=== PATIENT | male | born 1955 | race Caucasian/White ===

== ENCOUNTER 2016-06-25 13:40 | Emergency (ER) | payer OTHER ==
[2016-06-25 13:47] VITALS: O2SAT 95
--- NOTE | 2016-06-25 13:54 | CPEKG ---
Heart Rate: 70 RR Interval: 857 P-R Interval: 188 QRSD Interval: 90 QT Interval: 420 QTC Interval: 454 P [place]: 37 QRS [place]: -44 T Wave [place]: 34 EKG Severity - OTHERWISE NORMAL ECG - EKG Impression: SINUS RHYTHM EKG Impression: LEFT AXIS DEVIATION Electronically Signed By: Kenney Bull 25-Jun-2016 14:26:12
--- NOTE | 2016-06-25 13:57 | EDPHY ---
H & P Stated Complaint: episode of cp yesterday lasted 20sec/diaphoretic/now with fatigue only Time Seen by Provider: 06/25/16 13:52 HPI/ROS: CHIEF COMPLAINT: Resolved chest pain HISTORY OF PRESENT ILLNESS: The patient presents to the ED for evaluation of an episode of chest pain that occurred yesterday. Patient reports that approximately 2:00 p.m. while sitting at his desk he had a 30 second episode of sharp sub xiphoid pain. He had a brief episode of diaphoresis. Since that time he has had no recurrent symptoms. He reports very subtle symptoms of ongoing fatigue. The patient has no risk factors for cardiac disease aside from mild untreated hyperlipidemia. The patient is uncertain of his past family medical history as he was adopted. The patient is currently asymptomatic. The patient reports he does run frequently on a treadmill without any complaints of chest pain or shortness of breath. The patient denies any pleuritic chest pain, asymmetric calf pain or swelling or other acute complaints. The patient takes no regular medications. The patient denies recent surgical history. REVIEW OF SYSTEMS: A comprehensive 10 point review of systems is otherwise negative aside from elements mentioned in the history of present illness. Source: Patient Exam Limitations: No limitations - Personal History Current Tetanus/Diphtheria Vaccine: Unsure - Medical/Surgical History Hx Asthma: No Hx Chronic Respiratory Disease: No Hx Diabetes: No Hx Cardiac Disease: No Hx Renal Disease: No Hx Cirrhosis: No Hx Alcoholism: No Hx HIV/AIDS: No Hx Splenectomy or Spleen Trauma: No Other PMH: denies - Social History Smoking Status: Never smoked - Physical Exam Exam: General Appearance: Alert, no distress Eyes: Pupils equal and round no pallor or injection ENT, Mouth: Mucous membranes moist Respiratory: There are no retractions, lungs are clear to auscultation Cardiovascular: Regular rate and rhythm Gastrointestinal: Abdomen is soft and nontender, no masses, bowel sounds normal Neurological: A&O, normal motor function, normal sensory exam, normal cranial nerves Skin: Warm and dry, no rashes Musculoskeletal: Neck is supple nontender Extremities: symmetrical, full range of motion Constitutional: Initial Vital Signs Temperature (C) 36.4 C 06/25/16 13:43 Heart Rate 71 06/25/16 13:43 Respiratory Rate 20 06/25/16 13:43 Blood Pressure 153/96 H 06/25/16 13:43 O2 Sat (%) 95 06/25/16 13:43 O2 Delivery Mode Room Air Allergies/Adverse Reactions: No Known Allergies Allergy (Verified 06/25/16 13:43) Home Medications: Medication Instructions Recorded NK [No Known Home Meds] 06/25/16 Medical Decision Making - Diagnostics EKG Interpretation: EKG: Complete interpretation has been separately recorded in the [facility] archive. Summary impression: Sinus rhythm, rate 70, slight left axis deviation ED Course/Re-evaluation: The patient presents to the ED after a 20-30 second episode of atypical chest pain which occurred yesterday. The patient's EKG and cardiac enzymes are normal. The patient reports that he exercises frequently without symptoms of chest pain or shortness of breath. My clinical suspicion for acute coronary syndrome is low. I have told the patient that I cannot fully exclude the possibility that coronary artery disease has contributed to his symptoms. The patient would be comfortable following up with Dr. Rickie Mishra from Cardiology at the [facility] for a treadmill stress test next week. Patient does understand that he should return to the ED immediately this weekend for any recurrent chest pain or difficulty breathing. 2:40 p.m. I informed the patient that his workup in the emergency department is unremarkable. The patient is comfortable following up with Cardiology on Tuesday. He is given customary return precautions and follow-up instructions. Differential Diagnosis: Differential diagnosis considered includes esophageal spasm, acute coronary syndrome, pericarditis, myocardial infarction - Data Points Laboratory Results: Laboratory Results 06/25/16 13:50 06/25/16 13:50 06/25/16 06/25/16 13:50 13:50 WBC 5.66 10^3/uL 10^3/uL (3.80-9.50) RBC 5.07 10^6/uL 10^6/uL (4.40-6.38) Hgb 14.8 g/dL g/dL (13.7-17.5) Hct 44.0 % % (40.0-51.0) MCV 86.8 fL fL (81.5-99.8) MCH 29.2 pg pg (27.9-34.1) MCHC 33.6 g/dL g/dL (32.4-36.7) RDW 12.1 % % (11.5-15.2) Plt Count 176 10^3/uL 10^3/uL (150-400) MPV 10.6 fL fL (8.7-11.7) Neut % (Auto) 53.2 % % (39.3-74.2) Lymph % (Auto) 35.9 % % (15.0-45.0) Chambers % (Auto) 8.1 % % (4.5-13.0) Eos % (Auto) 1.4 % % (0.6-7.6) Baso % (Auto) 1.2 % % (0.3-1.7) Nucleat RBC Rel Count 0.0 % % (0.0-0.2) Absolute Neuts (auto) 3.01 10^3/uL 10^3/uL (1.70-6.50) Absolute Lymphs (auto) 2.03 10^3/uL 10^3/uL (1.00-3.00) Absolute Monos (auto) 0.46 10^3/uL 10^3/uL (0.30-0.80) Absolute Eos (auto) 0.08 10^3/uL 10^3/uL (0.03-0.40) Absolute Basos (auto) 0.07 10^3/uL 10^3/uL (0.02-0.10) Absolute Nucleated RBC 0.00 10^3/uL 10^3/uL (0-0.01) Immature Gran % 0.2 % % (0.0-1.1) Immature Gran # 0.01 10^3/uL 10^3/uL (0.00-0.10) Sodium 140 mEq/L mEq/L (134-144) Potassium 3.9 mEq/L mEq/L (3.5-5.2) Chloride 103 mEq/L mEq/L (97-110) Carbon Dioxide 25 mEq/l mEq/l (22-31) Anion Gap 12 mEq/L mEq/L (8-16) BUN 17 mg/dL mg/dL (7-23) Creatinine 1.0 mg/dL mg/dL (0.7-1.3) Estimated GFR > 60 Glucose 89 mg/dL mg/dL (70-100) Calcium 9.6 mg/dL mg/dL (8.5-10.4) Troponin I < 0.012 ng/mL ng/mL (0-0.034) Departure - Departure Disposition: Home, Routine, Self-Care Clinical Impression: Chest pain Condition: Good Instructions: Chest Pain (ED) Additional Instructions: 1. Based upon the testing done in the Emergency Department today we see no evidence of a heart attack. 2. We are unable to fully exclude coronary artery disease based upon the testing available in the Emergency Department. 3. For this reason, we would like you to be seen by cardiology for consideration of additional testing within the next 3 days. 4. Please contact the fish fryer you have been referred to schedule this appointment as soon as possible. Their offices are typically open from 8:30am- 5pm M-F. 5. Please return to the Emergency Department immediately for any recurrent chest pain, difficulty breathing or other concerns. Referrals: Denice Edward MD [Primary Care Provider] - As per Instructions Dallas Mishra MD [Medical Doctor] - As per Instructions
[2016-06-25 14:02] VITALS: PULSE 68; RESP 16
[2016-06-25 14:03] LABS: % IMMATURE GRANULYOCYTES 0.2 % (0.0-1.1); ABSOLUTE IMMATURE GRANULOCYTES 0.01 10^3/uL (0.00-0.10); ADD DIFF? NO; ADD MORPH? NO; ADD SCAN? NO; ATYPICAL LYMPHOCYTE FLAG 0 (0-99); FRAGMENT RBC FLAG 0 (0-99); HEMOGLOBIN 14.8 g/dL (13.7-17.5); LEFT SHIFT FLG 0 (0-99); LIPEMIA HEMOLYSIS FLAG 80 (0-99); MEAN CELL HEMOGLOBIN 29.2 pg (27.9-34.1); MEAN CELL HEMOGLOBIN CONCENTR. 33.6 g/dL (32.4-36.7); MEAN CELL VOLUME 86.8 fL (81.5-99.8); MEAN PLATELET VOLUME 10.6 fL (8.7-11.7); PLATELET CLUMPS FLAG 0 (0-99); PLATELET COUNT 176 10^3/uL (150-400); RED BLOOD CELL COUNT 5.07 10^6/uL (4.40-6.38); RED CELL DISTRIBUTION WIDTH 12.1 % (11.5-15.2)
[2016-06-25 14:19] LABS: ANION GAP 12 mEq/L (8-16); CALCIUM 9.6 mg/dL (8.5-10.4); CARBON DIOXIDE 25 mEq/l (22-31); CHLORIDE 103 mEq/L (97-110); GLOMERULAR FILTRATION RATE > 60; GLUCOSE 89 mg/dL (70-100); POTASSIUM 3.9 mEq/L (3.5-5.2); SODIUM 140 mEq/L (134-144)
[2016-06-25 14:29] LABS: TROPONIN I < 0.012 ng/mL (0-0.034)
[2016-06-25 14:51] VITALS: BP 155/91; TEMP 98.1
== END 2016-06-25 14:50 | disposition home or self-care (01) ==
DX: R07.9 Chest pain, unspecified (principal)

== ENCOUNTER 2018-06-22 09:22 | Emergency (ER) | payer OTHER ==
--- NOTE | 2018-06-22 09:35 | EDPHY ---
General Time Seen by Provider: 06/22/18 09:34 Narrative: CLINICAL IMPRESSION: Right-sided back pain, shortness of breath, lightheaded, weakness ASSESSMENT/PLAN: Patient is a 62-year-old male with a history of hyperlipidemia who presents to the emergency department with atraumatic right thoracic back pain, shortness of breath, lightheadedness and weakness. Patient is afebrile, he is not toxic appearing and in no acute distress. His neurological exam was grossly normal, no focal deficit; NIH 0, negative test of skew, there is no truncal or gait ataxia. CBC revealed mild anemia and thrombocytopenia, patient reports that he has had low blood counts in the past, he will follow up with his primary care provider regarding this. Patient with colonoscopy this year, has had no melena or hematochezia to suggest GI bleed. BMP, lipase and liver function panel all grossly unremarkable. An ECG was immediately obtained and revealed normal sinus rhythm at a rate of 67 without evidence of acute ischemia, this was reviewed by myself and Dr. Siegel. His symptoms have been ongoing longer than 6 hr, we did not feel that we needed to repeat troponin or ECG. ECG also unchanged from previous in 2017. Troponin was 0. A dimer was obtained and was within normal limits. Chest x-ray with no acute findings. History and physical examination is most consistent with right-sided thoracic back pain likely musculoskeletal in nature as it was ultimately reproduced in the emergency department. I suspect his episode of diaphoresis and feeling lightheaded with secondary to the discomfort that he was having and vasovagal in nature. He is also under quite a bit of stress, query mild underlying anxiety. There were no findings today to suggest intracranial hemorrhage, TIA, stroke, ACS, PE, pneumothorax, pleural inflammation, infectious process, dissection, cauda equina, epidural compression syndrome renal colic or pyelonephritis. A Lidoderm patch was placed, patient had mild relief in his discomfort and complete resolution in his feeling of lightheadedness. He was noted to have elevated blood pressure on arrival, this normalized without intervention, there was no evidence of hypertensive urgency or emergency. He is well established with his primary care provider and will call to schedule follow-up appointment to be seen in the next 1-2 days. He is also well established with Dr. Mishra at [facility], he will call to schedule appointment for follow-up with him as well. Conservative return precautions were discussed-patient will return for significantly worsening or uncontrolled pain, development of chest pain, increased shortness of breath, fever, numbness or tingling of extremities, focal weakness or for any other concerning symptom. Patient verbalizes understanding and he is in agreement with this plan. DIFFERENTIAL DX: Back pain including but not limited to and in no particular order muscular pain , fracture, PE, ACS, infectious process, cauda equina, renal colic, pyelonephritis. ED COURSE: 954: ECG reviewed by myself and Dr. Siegel. Sinus rhythm with a rate of 67, no evidence of acute ischemia. ECG reviewed from visit in 2017, unchanged. 1008: Case discussed with Dr. Siegel. Patient with mild anemia with platelets of 135; mildly low in comparison to laboratory studies performed 1 year prior. Troponin is 0. 1022: Dimer negative. Dr. Siegel to evaluate patient. Dr. Siegel was able to reproduce right-sided thoracic pain on his exam. 1043: On repeat examination the patient is well-appearing. He is very reassured by his findings. He denies any further lightheadedness, pain mildly improved. His neurological exam is grossly normal with no focal deficit. CHIEF COMPLAINT: Right-sided back pain, lightheaded, weakness HPI: Patient is a 62-year-old male with a significant history of hyperlipidemia who presents to the Emergency Department with a sudden-onset right-sided back pain yesterday which is escalating and now with generalized weakness and feeling lightheaded. Patient reports yesterday he stood up and had a sudden onset of right thoracic back pain where he feels like he pulled a muscle. It was sore all day, he took Tylenol and ibuprofen with mild relief of his discomfort. The pain has been constant, he bent down to pet his dog today when he experienced more severe pain. It is now worsened mostly when he takes a deep breath. He is unable to palpate the location of where he has most discomfort. He is generally feeling weak and experiencing lightheadedness. When the pain was most intense he experienced some associated diaphoresis for approximately 3-5 minutes, he denies any radiation of pain. He denies any history of similar episodes in the past. 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 He does sit for prolonged periods of time. He denies any history of lower extremity edema, blood clot or clotting disorder. He is under an increased amount of stress as his divorce was just finalized. Patient denies saddle paresthesias, lower extremity numbness, tingling, major motor weakness, urinary retention or bowel/bladder incontinence. He denies any anterior chest pain, he does feel mildly short of breath when the pain is most intense. There has been no change in appetite. He denies any recent illness to include upper respiratory symptoms or cough. He denies any abdominal pain, urinary symptoms or change in bowel habits. He is followed closely both by his [employer] physician and his primary care physician Dr. Edward. Patient does report evaluation by [facility] with a negative stress test, he did have a recent artery scan that showed mild plaque. PMH: Hyperlipidemia, C5 DDD Family History: Not contributory Social History: Remote smoker, denies illicit drug use, occasional beer REVIEW OF SYSTEMS: All other systems negative Constitutional: No fever, no chills, appetite change. Eyes: No discharge, vision change ENT: No sore throat, congestion, ear pain. Cardiovascular: No chest pain, no palpitations. Respiratory: Shortness of breath. No cough. Gastrointestinal: No abdominal pain, no vomiting, diarrhea. Genitourinary: No hematuria, dysuria, flank pain, pelvic pain Musculoskeletal: Right-sided thoracic back pain. Skin: No rashes, color change. Neurological: Weakness, lightheadedness. PHYSICAL EXAM: General Appearance: Alert, well-developed, not toxic-appearing.. HENT: Normocephalic, atraumatic. Bilateral external ears are normal. Bilateral tympanic membranes are normal with pearly godinez reflex. Nares are clear, mucosa is pink. Oropharynx is clear, uvula is midline. There is no tonsillar enlargement or exudate. The dentition is normal. Eyes: PERRLA, no acute vision change, nystagmus, swelling, discharge, pain or photosensitivity. Conjunctiva pink, no pallor or injection. Neck: Supple, nontender, no lymphadenopathy, no midline pain, FROM, no meningismus. No carotid bruits. Back: No step-off, palpable bony abnormality, edema, erythema or ecchymosis of the cervical, thoracic or lumbar spines. There is no midline thoracic or lumbar tenderness to palpation. I am unable to elicit any thoracic paraspinal muscle this to palpation in the area that he is complaining of pain. Full range of motion of all spines. 5/5 and equal strength of the UEs and LEs bilaterally including shoulder shrug. Pulses: 2+ and equal radial, femoral, DP and PT pulses bilaterally. Sensation intact and symmetric to light touch from face, UEs and LEs bilaterally. Respiratory: There are no retractions, lungs are clear to auscultation. Cardiac: Regular rate and rhythm, no murmurs or gallops. Gastrointestinal: Abdomen is soft, nontender, bowel sounds normal, no masses/ hernia, no rigidity, guarding or focal peritoneal findings. Neurological: MENTAL STATUS: Patient is alert and oriented to person, place, time, and situation. Recent and remote memory are intact. Attention and concentration are normal. Found knowledge is appropriate to level of education. Mood and affect normal. SPEECH: Language including naming, repetition, comprehension, and spontaneous speech are normal. No dysarthria or dysphagia. CRANIAL NERVES: II: Visual mckeon are full to confrontation. Vision is grossly intact. III, IV, : Pupils are equal, round, reactive to light. Extraocular eye movements are full and without nystagmus. V: Facial sensation is intact to touch symmetrically in all 3 divisions. VII: Face is symmetric at rest with no asymmetry of grimace or evidence of facial weakness. VIII: Hearing is intact bilaterally to finger rub. IX, X: Palate is midline and elevates symmetrically with intact cough/gag. XI: Sternocleidomastoid and trapezius strength is normal. XII: Tongue protrudes midline without atrophy or fasciculations. MOTOR: Normal bulk and tone symmetrically in the upper and lower extremities. Upper extremities: shoulder abduction, elbow flexion, elbow extension, flexion of fingers and finger abduction strength 5/5 bilaterally. Lower extremities: hip flexion, knee flexion and extension, plantar and dorsiflexion of foot, and great toe extension strength 5/5 bilaterally. No pronator drift. SENSORY: Sensation is intact to light touch and symmetric in the UE's in LE's bilaterally. Romberg is negative. COORDINATION: Fine motor and rapid alternating movements are normal. Finger to nose is normal bilaterally. [id number] is normal bilaterally. No abnormal movements noted. There is no tremor at rest or with posture or action. GAIT/STATION: Casual, straightforward gait is normal. Patient can walk on toes and on heels. No gait instability. NIH 0, negative test of skew, there is no truncal or gait ataxia. Skin: Warm, dry, no rashes, no nodules on palpation. Musculoskeletal: Extremities are symmetrical, full range of motion, no tenderness, deformity, swelling, or erythema. Psychiatric: Patient is oriented X 3, there is no agitation. MEDICAL DECISION MAKING: Patient was seen independently. Secondary supervising physician at time of evaluation was Dr. Siegel. Diagnosis: Right-sided back pain, shortness of breath, weakness, lightheadedness. New, requires workup Summary: See Assessment and Plan for summary of ED visit Clinical lab tests: ordered / reviewed. Independent visualization of images, tracing, or specimens: Yes. Decision to obtain medical records or history from someone other than the patient: No Review / Summarize previous medical records: Yes Discussed patient with another provider: Yes Patient Progress: Stable, discharge. - Diagnostics Imaging Results: Imaging Impressions Chest X-Ray 06/22/18 09:50 Impression: Normal chest. - Objective Vital Signs: Initial Vital Signs Temperature (C) 36.5 C 06/22/18 09:30 Heart Rate 70 06/22/18 09:30 Respiratory Rate 16 06/22/18 09:30 Blood Pressure 161/106 H 06/22/18 09:30 O2 Sat (%) 96 06/22/18 09:30 O2 Delivery Mode Room Air Allergies/Adverse Reactions: No Known Allergies Allergy (Verified 06/22/18 09:29) Home Medications: Medication Instructions Recorded Lipitor 06/22/18 Laboratory Results: Laboratory Results 06/22/18 09:40 06/22/18 09:40 06/22/18 06/22/18 06/22/18 09:42 09:40 09:40 WBC RBC Hgb Hct MCV MCH MCHC RDW Plt Count MPV Neut % (Auto) Lymph % (Auto) Woodruff % (Auto) Eos % (Auto) Baso % (Auto) Nucleat RBC Rel Count Absolute Neuts (auto) Absolute Lymphs (auto) Absolute Monos (auto) Absolute Eos (auto) Absolute Basos (auto) Absolute Nucleated RBC Immature Gran % Immature Gran # D-Dimer 0.36 ug/mLFEU ug/mLFEU (0.00-0.50) Sodium 138 mEq/L mEq/L (135-145) Potassium 4.5 mEq/L mEq/L (3.5-5.2) Chloride 104 mEq/L mEq/L (97-110) Carbon Dioxide 24 mEq/l mEq/l (22-31) Anion Gap 10 mEq/L mEq/L (6-14) BUN 16 mg/dL mg/dL (7-23) Creatinine 0.9 mg/dL mg/dL (0.7-1.3) Estimated GFR > 60 Glucose 101 mg/dL H mg/dL (70-100) Calcium 9.8 mg/dL mg/dL (8.5-10.4) Total Bilirubin 0.7 mg/dL mg/dL (0.1-1.4) Conjugated Bilirubin 0.5 mg/dL mg/dL (0.0-0.5) Unconjugated Bilirubin 0.2 mg/dL mg/dL (0.0-1.1) AST 42 IU/L IU/L (17-59) ALT 42 IU/L IU/L (21-72) Alkaline Phosphatase 92 IU/L IU/L (38-126) POC Troponin I 0.00 ng/mL ng/mL (0.00-0.08) Total Protein 7.2 g/dL g/dL (6.3-8.2) Albumin 4.5 g/dL g/dL (3.5-5.0) Lipase 183 IU/L IU/L (23-300) 06/22/18 09:40 WBC 6.97 10^3/uL 10^3/uL (3.80-9.50) RBC 3.97 10^6/uL L 10^6/uL (4.40-6.38) Hgb 11.4 g/dL L g/dL (13.7-17.5) Hct 34.7 % L % (40.0-51.0) MCV 87.4 fL fL (81.5-99.8) MCH 28.7 pg pg (27.9-34.1) MCHC 32.9 g/dL g/dL (32.4-36.7) RDW 11.9 % % (11.5-15.2) Plt Count 135 10^3/uL L 10^3/uL (150-400) MPV 10.4 fL fL (8.7-11.7) Neut % (Auto) 73.9 % % (39.3-74.2) Lymph % (Auto) 17.8 % % (15.0-45.0) Woodruff % (Auto) 6.0 % % (4.5-13.0) Eos % (Auto) 1.6 % % (0.6-7.6) Baso % (Auto) 0.4 % % (0.3-1.7) Nucleat RBC Rel Count 0.0 % % (0.0-0.2) Absolute Neuts (auto) 5.15 10^3/uL 10^3/uL (1.70-6.50) Absolute Lymphs (auto) 1.24 10^3/uL 10^3/uL (1.00-3.00) Absolute Monos (auto) 0.42 10^3/uL 10^3/uL (0.30-0.80) Absolute Eos (auto) 0.11 10^3/uL 10^3/uL (0.03-0.40) Absolute Basos (auto) 0.03 10^3/uL 10^3/uL (0.02-0.10) Absolute Nucleated RBC 0.00 10^3/uL 10^3/uL (0-0.01) Immature Gran % 0.3 % % (0.0-1.1) Immature Gran # 0.02 10^3/uL 10^3/uL (0.00-0.10) D-Dimer Sodium Potassium Chloride Carbon Dioxide Anion Gap BUN Creatinine Estimated GFR Glucose Calcium Total Bilirubin Conjugated Bilirubin Unconjugated Bilirubin AST ALT Alkaline Phosphatase POC Troponin I Total Protein Albumin Lipase Medications Given: Discontinued Medications Aspirin (Aspirin) 324 mg PO EDNOW ONE Stop: 06/22/18 09:50 Last Admin: 06/22/18 09:55 Dose: 324 mg Point of Care Test Results: Chemistry 06/22/18 09:42 POC Troponin I 0.00 ng/mL ng/mL (0.00-0.08) Departure - Departure Disposition: Home, Routine, Self-Care Clinical Impression: Light-headed feeling Thoracic back pain Qualifiers: Chronicity: acute Back pain laterality: right Qualified Code(s): M54.6 - Pain in thoracic spine Condition: Good Instructions: Lightheadedness (ED), Back Pain (ED) Additional Instructions: DISCHARGE INSTRUCTIONS FROM YOUR DOCTOR Thank you for visiting our emergency department today. Please keep in mind that discharge from the emergency department does not mean that there is nothing wrong - it simply means that we have not identified an emergency condition that requires further evaluation or treatment in the hospital. You should always plan to follow up with primary care for re-evaluation, please call Dr. Edward as we discussed. It is also important that you follow up with Dr. Mishra, please call to schedule an appointment. Most back pain improves quickly with rest and anti-inflammatory medicines. The majority of back pain will improve regardless of treatment within 4-6 weeks. Regardless, I recommend you follow up with primary care for recheck as soon as possible. Additional evaluation as an outpatient may be needed, and further therapeutic modalities such as chiropractic or PT may be helpful. Rest. Avoid lifting greater than 10-15 pounds. Avoid twisting or prolonged sitting. Movement and gentle walking is good for your back. Try to walk for 15-10 minutes on an even surface 3 or 4 times a day as tolerated and increase gentle exercise as your back improves. Apply ice to your low back during acute pain phase, later a heating pad set to a low setting or hot tub may be helpful to help relax muscles. For pain control: You may take Tylenol, I recommend 500-1000 mg every 6-8 hours as needed. Take with food and a full glass of water. Stop taking if this is upsetting her stomach. Do not exceed 4000 mg in a 24 hr period. You may also take ibuprofen, recommend 400 mg every 6 hr. Take with food and a full glass of water. Stop taking if this upsets her stomach. Do not exceed 2400 mg in a 24 hr period. Salonpas topical patch, you may purchase this [id number] at your grocery store if you feel that this helped to. Schedule a follow-up appointment with your primary care physician in the next 2- 3 days for re-evaluation. You may require further treatment, physical therapy and/or further future testing. Return for increased or unmanageable pain, new injury, new midline back pain, numbness, tingling, weakness of your legs, loss of bowel or bladder control, inability to urinate, burning or pain with urination, blood in the urine, fever , chills, abdominal pain, vomiting, difficulty walking, dizziness, fainting, chest pain, shortness of breath, neck pain, neck stiffness, other site of back pain, calf pain, leg redness or swelling, or for any other new, worsening or worrisome symptoms. People present with illnesses and injuries in different ways, and it is always possible that we have missed something. You may always return for re-evaluation if symptoms worsen or if they are not improving or if you develop new/different symptoms. Again, thank you for choosing our emergency department. We hope that you feel better. Referrals: Denice Edward MD [Primary Care Provider] - 1 day without fail Dallas Mishra MD [Medical Doctor] - 2-3 days, call for appt.
[2018-06-22] MEDS ORDERED: ASPIRIN 81 MG CHEWABLE TAB PO ONE (09:49)
[2018-06-22 09:58] LABS: PLATELET COUNT 135 10^3/uL (150-400)
[2018-06-22] MEDS ORDERED: LIDOCAINE 4%/MENTHOL 1% PATCH TD ONE (10:31)
[2018-06-22 11:17] VITALS: BP 121/71
[2018-06-22] MEDS ORDERED: PATCH REMOVAL 1 EA PATCH TD SCH (21:00)
--- NOTE | 2018-06-23 12:42 | CPEKG ---
Test Reason : OPEN Blood Pressure : / mmHG Vent. Rate : 067 BPM Atrial Rate : 067 BPM P-R Int : 183 ms QRS Dur : 094 ms QT Int : 429 ms P-R-T Axes : 031 -40 033 degrees QTc Int : 453 ms Sinus rhythm Left axis deviation Confirmed by Derick Siegel ([id number]) on 06/23/2018 12:41:42 PM Referred By: PHYSICIAN ED Confirmed By:Derick Siegel
== END 2018-06-22 11:23 | disposition home or self-care (01) ==
DX: M54.6 Pain in thoracic spine (principal); R42 Dizziness and giddiness; E78.5 Hyperlipidemia, unspecified
CPT/HCPCS: 84484-ER